=== PATIENT | male | born 1990 | race American Indian/Alaskan Native ===

== ENCOUNTER 2018-08-02 15:30 | Emergency (ER) | payer SELFPAY ==
[2018-08-02 16:53] VITALS: BP 129/78
== END 2018-08-02 17:30 | disposition left against medical advice (07) ==
LOC: ED 15:30
DX: J00 Acute nasopharyngitis [common cold] (principal); Z53.21 Procedure and treatment not carried out due to patient leaving prior to being seen by health care provider